=== PATIENT | male | born 1985 | race Caucasian/White ===

== ENCOUNTER 2018-10-16 03:56 | Inpatient (IN) | payer MEDICAID ==
[~2018-10-16] VITALS: Ht 175.3 cm; Wt 72.6 kg
[2018-10-16 06:15] LABS: BASOPHILS % (AUTO) 0.9 % (0.0-2.0); EOSINOPHILS % (AUTO) 3.4 % (1.0-6.0); HEMATOCRIT 43.9 % (41-53); HEMOGLOBIN 14.2 g/dL (13.5-17.5); LYMPHOCYTES # (AUTO) 3.1 K/uL (1.0-4.8); LYMPHOCYTES % (AUTO) 33.8 % (22.0-44.0); MEAN CORPUSCULAR HEMOGLOBIN 28.2 pg (26.0-34.0); MEAN CORPUSCULAR HGB CONC 32.3 G/dL (31.0-37.0); MEAN CORPUSCULAR VOLUME 87 fL (80-100); MONOCYTES # (AUTO) 0.7 K/uL (0.1-1.0); MONOCYTES % (AUTO) 7.7 % (2.0-9.0); NEUTROPHILS % (AUTO) 54.2 % (40.0-70.0); PLATELET COUNT (AUTO) 213 K/uL (150-450); RED BLOOD CELL COUNT(AUTO) 5.02 MIL/uL (4.50-5.90); RED CELL DISTRIBUTION WIDTH 15.6 % (11.5-14.5)
[2018-10-16 06:23] LABS: ANION GAP 8 mmol/L (8-16); CALCIUM, TOTAL 9.6 mg/dL (8.8-10.5); CARBON DIOXIDE 27 mmol/L (22-29); CHLORIDE 104 mmol/L (98-107); CREATININE 1.04 mg/dL (0.60-1.30); GLOMERULAR FILTR. RATE CALC > 60 mL/min (>60); GLUCOSE,RANDOM 80 mg/dL (70-110); POTASSIUM 3.9 mmol/L (3.5-5.1); SODIUM SERUM 139 mmol/L (136-145); UREA NITROGEN, BLOOD 15 mg/dL (7-18)
[2018-10-16 06:29] LABS: ALANINE AMINOTRANSFERASE 41 U/L (12-78); ALBUMIN 4.1 g/dL (3.4-5.0); ALKALINE PHOSPHATASE 73 U/L (46-116); ASPARTATE AMINOTRANSFERASE 52 U/L (15-37)
[2018-10-16 06:52] LABS: AMPHET/METH SCREEN,URINE POSITIVE (NEGATIVE); BARBITURATE SCREEN, URINE NEGATIVE (NEGATIVE); BENZODIAZEPINES SCREEN,URINE NEGATIVE (NEGATIVE); CANNABINOID SCREEN,URINE POSITIVE (NEGATIVE); COCAINE SCREEN,URINE NEGATIVE (NEGATIVE); METHADONE SCREEN, URINE NEGATIVE (NEGATIVE); OPIATE SCREEN,URINE NEGATIVE (NEGATIVE)
[2018-10-16 06:56] LABS: PHENCYCLIDINE SCREEN,URINE NEGATIVE (NEGATIVE)
[2018-10-16] MEDS ORDERED: DiphenhydrAMINE HCL 50 MG/ML VIAL ONE (09:03)
[2018-10-16] MEDS ORDERED: LORazepam 2 MG/ML VIAL ONE (09:03)
[2018-10-16] MEDS ORDERED: HALOPERIDOL LACTATE 5 MG/ML VIAL ONE (09:03)
[2018-10-16] MEDS ORDERED: LORazepam 2 MG/ML VIAL IM ONE (09:15)
[2018-10-16] MEDS ORDERED: HALOPERIDOL LACTATE 5 MG/ML VIAL IM ONE (09:15)
[2018-10-16] MEDS ORDERED: DiphenhydrAMINE HCL 50 MG/ML VIAL IM ONE (09:15)
[2018-10-16] MEDS ORDERED: ZOLPIDEM TARTRATE 10 MG TABLET PO PRN (11:00)
[2018-10-16] MEDS ORDERED: HALOPERIDOL 5 MG TABLET PO PRN (11:00)
[2018-10-16] MEDS ORDERED: LORazepam 2 MG TABLET PO PRN (11:00)
[2018-10-16] MEDS: QUEtiapine FUMARATE 100 MG TABLET PO SCH (21:12)
[2018-10-17 00:28] VITALS: BP 102/66
[2018-10-17] MEDS ORDERED: GuaiFENesin/D-METHORPHAN [SUGAR-FREE] 200-20MG/10 ML SYRUP UDCUP PO PRN (07:00)
[2018-10-17] MEDS ORDERED: PETROLATUM,WHITE 28 GM JELLY TP PRN (07:00)
[2018-10-17] MEDS ORDERED: ALBUTEROL SULFATE HFA 90 MCG/PUFF 8 GM INHALER IH PRN (07:00)
[2018-10-17] MEDS ORDERED: LOPERAMIDE HCL 2 MG CAPSULE PO PRN (07:00)
[2018-10-17] MEDS ORDERED: NICOTINE 14 MG/24 HOUR PATCH TD PRN (07:00)
[2018-10-17] MEDS ORDERED: ONDANSETRON HCL 4 MG TABLET PO PRN (07:00)
[2018-10-17] MEDS ORDERED: ACETAMINOPHEN 325 MG TABLET PO PRN (07:00)
[2018-10-17] MEDS ORDERED: DOCUSATE SODIUM 100 MG CAPSULE PO PRN (07:00)
[2018-10-17] MEDS ORDERED: CloNIDine HCL 0.1 MG TABLET PO PRN (07:00)
[2018-10-17] MEDS ORDERED: MAG HYDROX/AL HYDROX/SIMETH ES 30 ML SUSPENSION UDCUP PO PRN (07:00)
[2018-10-17 08:06] VITALS: BP 102/53
[2018-10-17 17:05] VITALS: BP 118/70
[2018-10-17] MEDS: QUEtiapine FUMARATE 100 MG TABLET PO SCH (20:45)
[2018-10-18 05:31] VITALS: BP 105/67
[2018-10-18 07:32] LABS: EOSINOPHILS % (AUTO) 4.8 % (1.0-6.0); HEMATOCRIT 42.9 % (41-53); HEMOGLOBIN 13.9 g/dL (13.5-17.5); LYMPHOCYTES # (AUTO) 2.3 K/uL (1.0-4.8); LYMPHOCYTES % (AUTO) 35.9 % (22.0-44.0); MEAN CORPUSCULAR HEMOGLOBIN 28.3 pg (26.0-34.0); MEAN CORPUSCULAR HGB CONC 32.3 G/dL (31.0-37.0); MEAN CORPUSCULAR VOLUME 88 fL (80-100); MONOCYTES # (AUTO) 0.6 K/uL (0.1-1.0); MONOCYTES % (AUTO) 8.9 % (2.0-9.0); NEUTROPHILS # (AUTO) 3.1 K/uL (1.8-7.7); NEUTROPHILS % (AUTO) 49.4 % (40.0-70.0); PLATELET COUNT (AUTO) 214 K/uL (150-450); RED BLOOD CELL COUNT(AUTO) 4.91 MIL/uL (4.50-5.90); RED CELL DISTRIBUTION WIDTH 15.7 % (11.5-14.5)
[2018-10-18 08:08] VITALS: BP 129/75
[2018-10-18 08:21] LABS: ANION GAP 8 mmol/L (8-16); CARBON DIOXIDE 27 mmol/L (22-29); CHLORIDE 104 mmol/L (98-107); CREATININE 1.03 mg/dL (0.60-1.30); GLUCOSE,RANDOM 93 mg/dL (70-110); POTASSIUM 4.2 mmol/L (3.5-5.1); SODIUM SERUM 139 mmol/L (136-145); UREA NITROGEN, BLOOD 19 mg/dL (7-18)
[2018-10-18 08:22] LABS: ALANINE AMINOTRANSFERASE 30 U/L (12-78); ALBUMIN 3.2 g/dL (3.4-5.0); ALKALINE PHOSPHATASE 78 U/L (46-116); ASPARTATE AMINOTRANSFERASE 28 U/L (15-37); BILIRUBIN,TOTAL 0.2 mg/dL (0.1-1.0); CALCIUM, TOTAL 9.5 mg/dL (8.8-10.5); CHOL/HDL RATIO 1.6 (4.2-7.3); CHOLESTEROL 128 mg/dL (131-200); GLOMERULAR FILTR. RATE CALC > 60 mL/min (>60); HDL CHOLESTEROL 82 mg/dL (40-60); LDL CHOL (CALC.) 34 mg/dL (0-130); THYROID STIMULATING HORMONE 0.38 uIU/mL (0.36-3.74); TRIGLYCERIDES 58 mg/dL (15-150)
[2018-10-18] MEDS ORDERED: HALOPERIDOL LACTATE 5 MG/ML VIAL ONE (15:43)
[2018-10-18] MEDS ORDERED: LORazepam 2 MG/ML VIAL ONE (15:43)
[2018-10-18] MEDS ORDERED: DiphenhydrAMINE HCL 50 MG/ML VIAL ONE (15:43)
[2018-10-18 16:00] VITALS: BP 116/79
[2018-10-18] MEDS ORDERED: HALOPERIDOL LACTATE 5 MG/ML VIAL IM ONE (16:00)
[2018-10-18] MEDS ORDERED: LORazepam 2 MG/ML VIAL IM ONE (16:00)
[2018-10-18] MEDS ORDERED: DiphenhydrAMINE HCL 50 MG/ML VIAL IM ONE (16:00)
[2018-10-18] MEDS: QUEtiapine FUMARATE 100 MG TABLET PO SCH (21:00)
[2018-10-19 02:46] VITALS: BP 120/62
[2018-10-19 08:14] VITALS: BP 130/76
[2018-10-19 16:14] VITALS: BP 121/76
[2018-10-19] MEDS: QUEtiapine FUMARATE 100 MG TABLET PO SCH (20:21)
[2018-10-20 00:29] VITALS: BP 118/65
[2018-10-20 08:17] VITALS: BP 116/66
== END 2018-10-20 13:38 | disposition home or self-care (01) | DRG 751 ==
LOC: EMS 03:59 → B3A 22:30
DX: F29 Unspecified psychosis not due to a substance or known physiological condition (principal); R45.851 Suicidal ideations; F15.10 Other stimulant abuse, uncomplicated; F10.10 Alcohol abuse, uncomplicated; F12.90 Cannabis use, unspecified, uncomplicated; F17.210 Nicotine dependence, cigarettes, uncomplicated; R74.0 Nonspecific elevation of levels of transaminase and lactic acid dehydrogenase [LDH]; F19.10 Other psychoactive substance abuse, uncomplicated; Z59.0 Homelessness; Z79.899 Other long term (current) drug therapy; Z91.5 Personal history of self-harm; Z71.51 Drug abuse counseling and surveillance of drug abuser; Z71.41 Alcohol abuse counseling and surveillance of alcoholic
CPT/HCPCS: 83036; 84443; G0480; J1200; J1630; J2060

== ENCOUNTER 2018-12-06 19:30 | Inpatient (IN) | payer MEDICAID ==
[~2018-12-06] VITALS: Ht 175.3 cm; Wt 76.4 kg
[2018-12-06] MEDS ORDERED: QUET100T PO (19:42)
[2018-12-06] MEDS ORDERED: PERTUSS(ACELL),DIPH,TET VAC/PF 0.5 ML VIAL IM ONE (23:00)
[2018-12-06] MEDS ORDERED: ACETAMINOPHEN 500 MG TABLET PO ONE (23:00)
[2018-12-07] MEDS ORDERED: LORazepam 2 MG TABLET PO PRN (02:00)
[2018-12-07] MEDS ORDERED: ZOLPIDEM TARTRATE 10 MG TABLET PO PRN (02:00)
[2018-12-07] MEDS ORDERED: QUEtiapine FUMARATE 100 MG TABLET PO PRN (02:00)
[2018-12-07 02:56] LABS: EOSINOPHILS % (AUTO) 2.8 % (1.0-6.0); HEMATOCRIT 39.8 % (41-53); HEMOGLOBIN 12.7 g/dL (13.5-17.5); LYMPHOCYTES # (AUTO) 3.1 K/uL (1.0-4.8); MEAN CORPUSCULAR HEMOGLOBIN 28.1 pg (26.0-34.0); MEAN CORPUSCULAR VOLUME 88 fL (80-100); MONOCYTES # (AUTO) 0.8 K/uL (0.1-1.0); MONOCYTES % (AUTO) 10.5 % (2.0-9.0); NEUTROPHILS # (AUTO) 3.5 K/uL (1.8-7.7); NEUTROPHILS % (AUTO) 45.7 % (40.0-70.0); PLATELET COUNT (AUTO) 177 K/uL (150-450); RED BLOOD CELL COUNT(AUTO) 4.53 MIL/uL (4.50-5.90); RED CELL DISTRIBUTION WIDTH 15.7 % (11.5-14.5)
[2018-12-07 03:02] LABS: ANION GAP 6 mmol/L (8-16); CALCIUM, TOTAL 9.4 mg/dL (8.8-10.5); CARBON DIOXIDE 29 mmol/L (22-29); CHLORIDE 104 mmol/L (98-107); CREATININE 1.04 mg/dL (0.60-1.30); GLOMERULAR FILTR. RATE CALC > 60 mL/min (>60); GLUCOSE,RANDOM 101 mg/dL (70-110); POTASSIUM 3.9 mmol/L (3.5-5.1); SODIUM SERUM 139 mmol/L (136-145); UREA NITROGEN, BLOOD 16 mg/dL (7-18)
[2018-12-07 03:08] LABS: ALANINE AMINOTRANSFERASE 21 U/L (12-78); ALBUMIN 3.7 g/dL (3.4-5.0); ALKALINE PHOSPHATASE 63 U/L (46-116); ASPARTATE AMINOTRANSFERASE 25 U/L (15-37); BILIRUBIN,TOTAL 0.6 mg/dL (0.1-1.0); TOTAL PROTEIN, SERUM 6.7 g/dL (6.4-8.2)
[2018-12-07 03:10] LABS: APPEARANCE,URINE CLEAR (CLEAR); BILIRUBIN,URINE NEGATIVE (NEGATIVE); GLUCOSE, URINE (UA) NEGATIVE (NEGATIVE); KETONES,URINE NEGATIVE (NEGATIVE); LEUKOCYTE ESTERASE ,URINE NEGATIVE (NEGATIVE); NITRATE,URINE NEGATIVE (NEGATIVE); OCCULT BLOOD,URINE NEGATIVE (NEGATIVE); PROTEIN,URINE NEGATIVE (NEGATIVE); UROBILINOGEN,URINE 0.2 mg/dL (<=1.0)
[2018-12-07 03:13] LABS: AMPHET/METH SCREEN,URINE NEGATIVE (NEGATIVE); BARBITURATE SCREEN, URINE NEGATIVE (NEGATIVE); BENZODIAZEPINES SCREEN,URINE NEGATIVE (NEGATIVE); CANNABINOID SCREEN,URINE POSITIVE (NEGATIVE); COCAINE SCREEN,URINE NEGATIVE (NEGATIVE); METHADONE SCREEN, URINE NEGATIVE (NEGATIVE); OPIATE SCREEN,URINE NEGATIVE (NEGATIVE); PHENCYCLIDINE SCREEN,URINE NEGATIVE (NEGATIVE)
[2018-12-07 08:43] VITALS: BP 112/64
[2018-12-07] MEDS ORDERED: HydrOXYzine PAMOATE 50 MG CAPSULE PO PRN (13:45)
[2018-12-07] MEDS ORDERED: ACETAMINOPHEN 325 MG TABLET PO PRN (13:45)
[2018-12-07] MEDS ORDERED: PROMETHAZINE HCL 25 MG TABLET PO PRN (13:45)
[2018-12-07] MEDS ORDERED: GuaiFENesin/D-METHORPHAN [SUGAR-FREE] 200-20MG/10 ML SYRUP UDCUP PO PRN (13:45)
[2018-12-07] MEDS ORDERED: MAGNESIUM HYDROXIDE SUSPENSION 30 ML UDCUP PO PRN (13:45)
[2018-12-07] MEDS ORDERED: TUBERCULIN, PURIFIED PROTEIN DERIVATIVE 5 TU/0.1 ML SYRINGE ID ONE (13:45)
[2018-12-07] MEDS ORDERED: OLANZapine 5 MG RAPDIS TABLET PO PRN (13:45)
[2018-12-07] MEDS ORDERED: LOPERAMIDE HCL 2 MG CAPSULE PO PRN (13:45)
[2018-12-07] MEDS ORDERED: MAG HYDROX/AL HYDROX/SIMETH ES 30 ML SUSPENSION UDCUP PO PRN (13:45)
[2018-12-07 16:00] VITALS: BP 124/65
[2018-12-07] MEDS: THIAMINE HCL 100 MG TABLET PO SCH (17:00)
[2018-12-07] MEDS ORDERED: OLANZapine 5 MG RAPDIS TABLET PO SCH (21:00)
[2018-12-08 06:08] VITALS: BP 118/68
[2018-12-08] MEDS ORDERED: FLUoxetine HCL 20 MG CAPSULE PO SCH (09:00)
[2018-12-08] MEDS: NALTREXONE HCL 50 MG TABLET PO SCH (09:37)
[2018-12-08] MEDS: MULTIVITAMINS WITH MINERALS, THERAPEUTIC TABLET PO SCH (09:37)
[2018-12-08] MEDS: THIAMINE HCL 100 MG TABLET PO SCH ×2 (09:37→17:07)
[2018-12-08] MEDS: FOLIC ACID 1 MG TABLET PO SCH (09:37)
[2018-12-08] MEDS ORDERED: OLAN5TAB30 PO (19:03)
[2018-12-08] MEDS ORDERED: NALT50TA PO (19:03)
[2018-12-08] MEDS ORDERED: BUPR-47 PO (19:03)
[2018-12-08] MEDS ORDERED: OLANZapine 5 MG RAPDIS TABLET PO SCH (21:00)
[2018-12-09 08:09] VITALS: BP 99/61
[2018-12-09] MEDS: MULTIVITAMINS WITH MINERALS, THERAPEUTIC TABLET PO SCH (08:55)
[2018-12-09] MEDS: NALTREXONE HCL 50 MG TABLET PO SCH (08:59)
[2018-12-09] MEDS: THIAMINE HCL 100 MG TABLET PO SCH (08:59)
[2018-12-09] MEDS: FOLIC ACID 1 MG TABLET PO SCH (08:59)
[2018-12-09] MEDS ORDERED: BuPROPion HCL XL 150 MG ER TABLET PO SCH (09:00)
[2018-12-09] MEDS ORDERED: BUPR-93 PO (11:26)
[2018-12-09] MEDS ORDERED: NALT50TA6 PO (11:26)
[2018-12-09] MEDS ORDERED: OLAN20TA35 PO (11:26)
== END 2018-12-09 14:37 | disposition home or self-care (01) | DRG 751 ==
LOC: EMS 19:32 → B3A 12-07 03:17
PROVIDERS: ADMIT Psychiatry & Neurology Psychiatry; ATTEND Psychiatry & Neurology Psychiatry
PROC: 2W3RX1Z Immobilization of Left Lower Leg using Splint (ICD-10-PCS; principal; 2018-12-07)
DX: F33.2 Major depressive disorder, recurrent severe without psychotic features (principal); R45.851 Suicidal ideations; F25.9 Schizoaffective disorder, unspecified; D64.9 Anemia, unspecified; F12.10 Cannabis abuse, uncomplicated; S30.0XXA Contusion of lower back and pelvis, initial encounter; F17.210 Nicotine dependence, cigarettes, uncomplicated; S62.305A Unspecified fracture of fourth metacarpal bone, left hand, initial encounter for closed fracture; X58.XXXA Exposure to other specified factors, initial encounter; Y93.89 Activity, other specified; Z91.19 Patient's noncompliance with other medical treatment and regimen; Y92.89 Other specified places as the place of occurrence of the external cause; Y99.8 Other external cause status; Z63.9 Problem related to primary support group, unspecified; Z65.3 Problems related to other legal circumstances
CPT/HCPCS: 29280; 90471; 90715; G0480

== ENCOUNTER 2019-01-10 00:27 | Emergency (ER) | payer MEDICAID ==
[~2019-01-10] VITALS: Ht 175.3 cm; Wt 77.3 kg
[~2019-01-10 00:27] MED LIST: BUPR-47 PO; BUPR-93 PO; NALT50TA PO; NALT50TA6 PO; OLAN20TA35 PO; OLAN5TAB30 PO
[2019-01-10 04:25] VITALS: BP 117/70
== END 2019-01-10 04:35 | disposition left against medical advice (07) ==
LOC: EMS 00:30
DX: S43.004A Unspecified dislocation of right shoulder joint, initial encounter (principal); F12.90 Cannabis use, unspecified, uncomplicated; F17.210 Nicotine dependence, cigarettes, uncomplicated; Z88.6 Allergy status to analgesic agent; X50.3XXA Overexertion from repetitive movements, initial encounter; Y93.41 Activity, dancing; Y92.89 Other specified places as the place of occurrence of the external cause; Y99.8 Other external cause status
CPT/HCPCS: 99406

== ENCOUNTER 2019-02-03 20:15 | Inpatient (IN) | payer MEDICAID ==
[~2019-02-03] VITALS: Ht 175.3 cm; Wt 75.3 kg
[~2019-02-03 20:15] MED LIST changes: -BUPR-47 PO; -NALT50TA PO; -OLAN5TAB30 PO
[2019-02-04] MEDS ORDERED: ZOLPIDEM TARTRATE 10 MG TABLET PO PRN
[2019-02-04] MEDS ORDERED: LORazepam 2 MG TABLET PO PRN
[2019-02-04] MEDS ORDERED: HALOPERIDOL 5 MG TABLET PO PRN
[2019-02-04 01:15] VITALS: BP 121/82
[2019-02-04] MEDS ORDERED: DOCUSATE SODIUM 100 MG CAPSULE PO PRN (01:45)
[2019-02-04] MEDS ORDERED: MAGNESIUM HYDROXIDE SUSPENSION 30 ML UDCUP PO PRN (01:45)
[2019-02-04] MEDS ORDERED: CloNIDine HCL 0.1 MG TABLET PO PRN (01:45)
[2019-02-04] MEDS ORDERED: ACETAMINOPHEN 325 MG TABLET PO PRN (01:45)
[2019-02-04] MEDS ORDERED: PETROLATUM,WHITE 28 GM JELLY TP PRN (01:45)
[2019-02-04] MEDS ORDERED: ALBUTEROL SULFATE HFA 90 MCG/PUFF 8 GM INHALER IH PRN (01:45)
[2019-02-04] MEDS ORDERED: NICOTINE 14 MG/24 HOUR PATCH TD PRN (01:45)
[2019-02-04] MEDS ORDERED: ONDANSETRON HCL 4 MG TABLET PO PRN (01:45)
[2019-02-04] MEDS ORDERED: IBUPROFEN 400 MG TABLET PO PRN (01:45)
[2019-02-04] MEDS ORDERED: LOPERAMIDE HCL 2 MG CAPSULE PO PRN (01:45)
[2019-02-04] MEDS ORDERED: GuaiFENesin/D-METHORPHAN [SUGAR-FREE] 200-20MG/10 ML SYRUP UDCUP PO PRN (01:45)
[2019-02-04] MEDS ORDERED: MAG HYDROX/AL HYDROX/SIMETH ES 30 ML SUSPENSION UDCUP PO PRN (01:45)
[2019-02-04] MEDS ORDERED: INFLUENZA VIRUS VACCINE QVS 2019-20 (3YR+)/PF 60 MCG/0.5 ML SYRINGE IM ONE (02:00)
[2019-02-04 08:14] VITALS: BP 118/71
[2019-02-04 16:40] VITALS: BP 116/74
[2019-02-04] MEDS: QUEtiapine FUMARATE 25 MG TABLET PO SCH (20:18)
[2019-02-05 08:30] VITALS: BP 126/73
[2019-02-05 16:14] VITALS: BP 101/62
[2019-02-05] MEDS: QUEtiapine FUMARATE 25 MG TABLET PO SCH (20:26)
[2019-02-06 05:17] VITALS: BP 110/68
[2019-02-06 08:52] VITALS: BP 110/63
[2019-02-06 16:26] VITALS: BP 107/67
[2019-02-06] MEDS: QUEtiapine FUMARATE 25 MG TABLET PO SCH (20:20)
[2019-02-07 00:28] VITALS: BP 106/68
[2019-02-07 16:26] VITALS: BP 117/72
[2019-02-07] MEDS: QUEtiapine FUMARATE 25 MG TABLET PO SCH (20:30)
[2019-02-08 01:06] VITALS: BP 110/70
[2019-02-08 08:25] VITALS: BP 139/78
[2019-02-08] MEDS ORDERED: QUET25TA PO (10:08)
== END 2019-02-08 11:08 | disposition home or self-care (01) | DRG 751 ==
LOC: EMS 20:17 → B2S 02-04 00:01
PROVIDERS: ADMIT Psychiatry & Neurology Psychiatry; ATTEND Psychiatry & Neurology Psychiatry
DX: F32.3 Major depressive disorder, single episode, severe with psychotic features (principal); R45.851 Suicidal ideations; Z91.14 Patient's other noncompliance with medication regimen; F17.210 Nicotine dependence, cigarettes, uncomplicated; F12.90 Cannabis use, unspecified, uncomplicated; F10.10 Alcohol abuse, uncomplicated; F15.90 Other stimulant use, unspecified, uncomplicated; Z88.1 Allergy status to other antibiotic agents; Z59.0 Homelessness; Z91.5 Personal history of self-harm
CPT/HCPCS: 87081

== ENCOUNTER 2019-02-22 16:13 | Inpatient (IN) | payer MEDICAID ==
[~2019-02-22] VITALS: Ht 175.3 cm; Wt 74.8 kg
[~2019-02-22 16:13] MED LIST changes: -BUPR-93 PO; -NALT50TA6 PO; -OLAN20TA35 PO; +QUET25TA PO
[2019-02-22] MEDS ORDERED: HALOPERIDOL 5 MG TABLET PO PRN (21:15)
[2019-02-22] MEDS ORDERED: ZOLPIDEM TARTRATE 10 MG TABLET PO PRN (21:15)
[2019-02-22 21:17] LABS: AMPHET/METH SCREEN,URINE NEGATIVE (NEGATIVE); BARBITURATE SCREEN, URINE NEGATIVE (NEGATIVE); BENZODIAZEPINES SCREEN,URINE NEGATIVE (NEGATIVE); CANNABINOID SCREEN,URINE POSITIVE (NEGATIVE); COCAINE SCREEN,URINE NEGATIVE (NEGATIVE); METHADONE SCREEN, URINE NEGATIVE (NEGATIVE); OPIATE SCREEN,URINE NEGATIVE (NEGATIVE)
[2019-02-22 21:27] LABS: PHENCYCLIDINE SCREEN,URINE NEGATIVE (NEGATIVE)
[2019-02-22 21:28] LABS: APPEARANCE,URINE CLOUDY (CLEAR); BILIRUBIN,URINE NEGATIVE (NEGATIVE); GLUCOSE, URINE (UA) NEGATIVE (NEGATIVE); KETONES,URINE NEGATIVE (NEGATIVE); LEUKOCYTE ESTERASE ,URINE NEGATIVE (NEGATIVE); NITRATE,URINE NEGATIVE (NEGATIVE); OCCULT BLOOD,URINE NEGATIVE (NEGATIVE); PROTEIN,URINE NEGATIVE (NEGATIVE); UROBILINOGEN,URINE 0.2 mg/dL (<=1.0)
[2019-02-23 03:26] VITALS: BP 112/69
[2019-02-23] MEDS ORDERED: INFLUENZA VIRUS VACCINE QVS 2019-20 (3YR+)/PF 60 MCG/0.5 ML SYRINGE IM ONE (04:15)
[2019-02-23 08:17] VITALS: BP 126/66
[2019-02-23 19:08] VITALS: BP 130/68
[2019-02-23] MEDS: QUEtiapine FUMARATE 100 MG TABLET PO SCH (20:01)
[2019-02-24 08:43] VITALS: BP 111/66
[2019-02-24] MEDS ORDERED: LOPERAMIDE HCL 2 MG CAPSULE PO PRN (13:15)
[2019-02-24] MEDS ORDERED: MAG HYDROX/AL HYDROX/SIMETH ES 30 ML SUSPENSION UDCUP PO PRN (13:15)
[2019-02-24] MEDS ORDERED: ACETAMINOPHEN 325 MG TABLET PO PRN (13:15)
[2019-02-24] MEDS ORDERED: CloNIDine HCL 0.1 MG TABLET PO PRN (13:15)
[2019-02-24] MEDS ORDERED: GuaiFENesin/D-METHORPHAN [SUGAR-FREE] 200-20MG/10 ML SYRUP UDCUP PO PRN (13:15)
[2019-02-24] MEDS ORDERED: ONDANSETRON HCL 4 MG TABLET PO PRN (13:15)
[2019-02-24] MEDS ORDERED: ALBUTEROL SULFATE HFA 90 MCG/PUFF 8 GM INHALER IH PRN (13:15)
[2019-02-24] MEDS ORDERED: DOCUSATE SODIUM 100 MG CAPSULE PO PRN (13:15)
[2019-02-24] MEDS ORDERED: MAGNESIUM HYDROXIDE SUSPENSION 30 ML UDCUP PO PRN (13:15)
[2019-02-24] MEDS ORDERED: PETROLATUM,WHITE 28 GM JELLY TP PRN (13:15)
[2019-02-24] MEDS ORDERED: NICOTINE 14 MG/24 HOUR PATCH TD PRN (13:15)
[2019-02-24 17:23] VITALS: BP 140/67
[2019-02-24] MEDS: QUEtiapine FUMARATE 100 MG TABLET PO SCH (20:17)
[2019-02-25 08:21] VITALS: BP 111/61
[2019-02-25 16:24] VITALS: BP 122/69
[2019-02-25] MEDS: QUEtiapine FUMARATE 100 MG TABLET PO SCH (20:16)
[2019-02-26 08:18] VITALS: BP 109/74
[2019-02-26 16:11] VITALS: BP 128/84
[2019-02-26] MEDS: QUEtiapine FUMARATE 100 MG TABLET PO SCH (20:28)
[2019-02-27 08:41] VITALS: BP 114/67
[2019-02-27 16:27] VITALS: BP 138/83
[2019-02-27] MEDS: QUEtiapine FUMARATE 100 MG TABLET PO SCH (20:31)
[2019-02-28 06:25] VITALS: BP 119/81
[2019-02-28 08:57] VITALS: BP 134/78
[2019-02-28 16:46] VITALS: BP 140/89
[2019-02-28] MEDS: LORazepam 2 MG TABLET PO PRN (17:02)
[2019-02-28] MEDS: QUEtiapine FUMARATE 200 MG TABLET PO SCH (20:33)
[2019-03-01 06:54] VITALS: BP 106/70
[2019-03-01 08:40] VITALS: BP 119/86
[2019-03-01] MEDS: LORazepam 2 MG TABLET PO PRN (09:21)
[2019-03-01 16:26] VITALS: BP 147/81
[2019-03-01] MEDS ORDERED: DiphenhydrAMINE HCL 50 MG/ML VIAL IM ONE (18:30)
[2019-03-01] MEDS ORDERED: LORazepam 2 MG/ML VIAL IM ONE (18:30)
[2019-03-01] MEDS ORDERED: HALOPERIDOL LACTATE 5 MG/ML VIAL IM ONE (18:30)
[2019-03-01] MEDS: QUEtiapine FUMARATE 200 MG TABLET PO SCH (21:00)
[2019-03-02 09:47] VITALS: BP 111/75
[2019-03-02 17:05] VITALS: BP 123/74
[2019-03-02] MEDS: QUEtiapine FUMARATE 200 MG TABLET PO SCH (20:34)
[2019-03-03 08:51] VITALS: BP 133/79
[2019-03-03] MEDS ORDERED: QUET200T PO (12:08)
== END 2019-03-03 15:00 | disposition home or self-care (01) | DRG 750 ==
LOC: EMS 16:15 → B2S 23:30 → UNDOADMIN 23:30 → B2S 02-23 03:17 → 3EC 03-01 17:10
PROVIDERS: ADMIT Psychiatry & Neurology Psychiatry; ATTEND Psychiatry & Neurology Psychiatry
DX: F25.9 Schizoaffective disorder, unspecified (principal); R45.851 Suicidal ideations; Z59.0 Homelessness; F10.10 Alcohol abuse, uncomplicated; F12.90 Cannabis use, unspecified, uncomplicated; F15.90 Other stimulant use, unspecified, uncomplicated; F17.210 Nicotine dependence, cigarettes, uncomplicated; Z79.899 Other long term (current) drug therapy; Z81.8 Family history of other mental and behavioral disorders; Z88.1 Allergy status to other antibiotic agents; Z91.14 Patient's other noncompliance with medication regimen; Z65.3 Problems related to other legal circumstances
CPT/HCPCS: 87081; J1200; J1630; J2060

== ENCOUNTER 2019-03-06 10:07 | Emergency (ER) | payer MEDICAID ==
[~2019-03-06] VITALS: Ht 175.3 cm; Wt 72.7 kg
[~2019-03-06 10:07] MED LIST changes: +QUET200T PO; -QUET25TA PO
[2019-03-06 12:35] LABS: AMPHET/METH SCREEN,URINE NEGATIVE (NEGATIVE); BARBITURATE SCREEN, URINE NEGATIVE (NEGATIVE); BENZODIAZEPINES SCREEN,URINE NEGATIVE (NEGATIVE); CANNABINOID SCREEN,URINE POSITIVE (NEGATIVE); COCAINE SCREEN,URINE NEGATIVE (NEGATIVE); METHADONE SCREEN, URINE NEGATIVE (NEGATIVE); OPIATE SCREEN,URINE NEGATIVE (NEGATIVE); PHENCYCLIDINE SCREEN,URINE NEGATIVE (NEGATIVE)
[2019-03-06 14:20] VITALS: BP 121/61
== END 2019-03-06 14:40 | disposition home or self-care (01) ==
LOC: EMS 10:10
DX: R45.851 Suicidal ideations (principal); F32.9 Major depressive disorder, single episode, unspecified; F17.210 Nicotine dependence, cigarettes, uncomplicated; F12.90 Cannabis use, unspecified, uncomplicated; F15.90 Other stimulant use, unspecified, uncomplicated; Z98.890 Other specified postprocedural states; Z88.6 Allergy status to analgesic agent
CPT/HCPCS: 99406

== ENCOUNTER 2019-09-21 09:56 | Emergency (ER) | payer MEDICAID ==
[~2019-09-21] VITALS: Ht 175.3 cm; Wt 77.3 kg
[2019-09-21 12:40] VITALS: BP 117/70
== END 2019-09-21 12:30 | disposition home or self-care (01) ==
LOC: EMS 10:00
DX: M24.411 Recurrent dislocation, right shoulder (principal); F17.210 Nicotine dependence, cigarettes, uncomplicated; F12.90 Cannabis use, unspecified, uncomplicated; F15.90 Other stimulant use, unspecified, uncomplicated; F32.9 Major depressive disorder, single episode, unspecified; Z88.6 Allergy status to analgesic agent

== ENCOUNTER 2022-09-13 05:50 | Inpatient (IN) | payer MEDICAID ==
[~2022-09-13] VITALS: Ht 175.3 cm; Wt 81.6 kg
[2022-09-13] MEDS ORDERED: ZOLPIDEM TARTRATE 10 MG TABLET PO PRN (08:45)
[2022-09-13] MEDS ORDERED: QUEtiapine FUMARATE 100 MG TABLET PO PRN (08:45)
[2022-09-13] MEDS ORDERED: LORazepam 2 MG TABLET PO PRN (08:45)
[2022-09-13 10:19] LABS: COVID AG,FIA SOURCE NASAL SWAB
[2022-09-13 14:13] VITALS: BP 130/77
[2022-09-13 16:49] VITALS: BP 120/66
[2022-09-14 04:32] VITALS: BP 122/68
[2022-09-14] MEDS ORDERED: ACETAMINOPHEN 325 MG TABLET PO PRN (09:00)
[2022-09-14] MEDS ORDERED: PETROLATUM,WHITE 28 GM JELLY TP PRN (09:00)
[2022-09-14] MEDS ORDERED: MAGNESIUM HYDROXIDE SUSPENSION 30 ML UDCUP PO PRN (09:00)
[2022-09-14] MEDS ORDERED: CloNIDine HCL 0.1 MG TABLET PO PRN (09:00)
[2022-09-14] MEDS ORDERED: NICOTINE 14 MG/24 HOUR PATCH TD PRN (09:00)
[2022-09-14] MEDS ORDERED: LOPERAMIDE HCL 2 MG CAPSULE PO PRN (09:00)
[2022-09-14] MEDS ORDERED: MAG HYDROX/AL HYDROX/SIMETH ES 30 ML SUSPENSION UDCUP PO PRN (09:00)
[2022-09-14] MEDS ORDERED: GuaiFENesin/D-METHORPHAN [SUGAR-FREE] 200-20MG/10 ML SYRUP UDCUP PO PRN (09:00)
[2022-09-14] MEDS ORDERED: ALBUTEROL SULFATE HFA 90 MCG/PUFF 8 GM INHALER IH PRN (09:00)
[2022-09-14] MEDS ORDERED: ONDANSETRON HCL 4 MG TABLET PO PRN (09:00)
[2022-09-14] MEDS ORDERED: DOCUSATE SODIUM 100 MG CAPSULE PO PRN (09:00)
[2022-09-14 16:31] VITALS: BP 131/86
[2022-09-14] MEDS: QUEtiapine FUMARATE 100 MG TABLET PO SCH (20:12)
[2022-09-15 08:51] VITALS: BP 113/60
[2022-09-15] MEDS: QUEtiapine FUMARATE 100 MG TABLET PO SCH (20:32)
[2022-09-15 20:40] VITALS: BP 114/67
[2022-09-16 08:24] VITALS: BP 110/73
[2022-09-16 20:26] VITALS: BP 123/80
[2022-09-16] MEDS: QUEtiapine FUMARATE 100 MG TABLET PO SCH (22:15)
[2022-09-17 08:31] VITALS: BP 106/67
[2022-09-17] MEDS: QUEtiapine FUMARATE 100 MG TABLET PO SCH (20:35)
[2022-09-17 20:59] VITALS: BP 130/77
[2022-09-18] MEDS ORDERED: QUET100T34 PO (05:06)
== END 2022-09-18 08:10 | disposition home or self-care (01) | DRG 753 ==
LOC: EMS 05:51 → B2S 12:20
PROVIDERS: ADMIT Psychiatry & Neurology Psychiatry; ATTEND Psychiatry & Neurology Psychiatry
DX: F31.4 Bipolar disorder, current episode depressed, severe, without psychotic features (principal); R45.851 Suicidal ideations; F41.9 Anxiety disorder, unspecified; G47.00 Insomnia, unspecified; F19.10 Other psychoactive substance abuse, uncomplicated; F10.90 Alcohol use, unspecified, uncomplicated; F17.210 Nicotine dependence, cigarettes, uncomplicated; K59.00 Constipation, unspecified; Z59.00 Homelessness unspecified; Z79.899 Other long term (current) drug therapy; Z88.6 Allergy status to analgesic agent; Z91.51 Personal history of suicidal behavior
CPT/HCPCS: Z7610

== ENCOUNTER 2022-10-21 23:41 | Emergency (ER) | payer MEDICAID ==
[~2022-10-21] VITALS: Ht 175.3 cm; Wt 75.0 kg
[2022-10-22 02:44] VITALS: TEMP 98.1
[2022-10-22] MEDS ORDERED: QUEtiapine FUMARATE 100 MG TABLET PO ONE (02:45)
[2022-10-22 02:48] VITALS: BP 132/86; PULSE 81; RESP 17
[2022-10-22 03:00] LABS: COVID AG,FIA SOURCE NASAL SWAB
[2022-10-22 03:13] LABS: AMPHET/METH SCREEN,URINE POSITIVE (NEGATIVE); BARBITURATE SCREEN, URINE NEGATIVE (NEGATIVE); BENZODIAZEPINES SCREEN,URINE NEGATIVE (NEGATIVE); CANNABINOID SCREEN,URINE NEGATIVE (NEGATIVE); COCAINE SCREEN,URINE NEGATIVE (NEGATIVE); METHADONE SCREEN, URINE NEGATIVE (NEGATIVE); OPIATE SCREEN,URINE NEGATIVE (NEGATIVE); PHENCYCLIDINE SCREEN,URINE NEGATIVE (NEGATIVE)
== END 2022-10-22 06:05 | disposition home or self-care (01) ==
LOC: EMS 23:42
DX: F32.A Depression, unspecified (principal); F17.210 Nicotine dependence, cigarettes, uncomplicated; F12.90 Cannabis use, unspecified, uncomplicated; F15.90 Other stimulant use, unspecified, uncomplicated; Z88.8 Allergy status to other drugs, medicaments and biological substances; Z20.822 Contact with and (suspected) exposure to COVID-19
CPT/HCPCS: 80307; 99285

== ENCOUNTER 2022-11-02 00:50 | Emergency (ER) | payer MEDICAID ==
[~2022-11-02] VITALS: Ht 172.7 cm; Wt 75.0 kg
[2022-11-02 01:20] VITALS: TEMP 98.4
[2022-11-02] MEDS ORDERED: TraMADol HCL 50 MG TABLET PO ONE (01:30)
[2022-11-02 03:01] VITALS: BP 112/60; PULSE 90; RESP 16
== END 2022-11-02 06:09 | disposition home or self-care (01) ==
LOC: EMS 00:51
DX: S43.004A Unspecified dislocation of right shoulder joint, initial encounter (principal); F41.9 Anxiety disorder, unspecified; F31.9 Bipolar disorder, unspecified; F17.210 Nicotine dependence, cigarettes, uncomplicated; F12.90 Cannabis use, unspecified, uncomplicated; F15.90 Other stimulant use, unspecified, uncomplicated; Z88.8 Allergy status to other drugs, medicaments and biological substances; X58.XXXA Exposure to other specified factors, initial encounter; Y93.89 Activity, other specified; Y92.89 Other specified places as the place of occurrence of the external cause; Y99.8 Other external cause status
CPT/HCPCS: 99283

== ENCOUNTER 2022-11-02 20:52 | Emergency (ER) | payer MEDICAID ==
[~2022-11-02] VITALS: Ht 172.7 cm; Wt 79.5 kg
[2022-11-02 21:27] LABS: BASOPHILS % (AUTO) 0.9 % (0.0-2.0); EOSINOPHILS % (AUTO) 3.3 % (1.0-6.0); HEMATOCRIT 34.1 % (41-53); HEMOGLOBIN 10.9 g/dL (13.5-17.5); LYMPHOCYTES # (AUTO) 2.3 K/uL (1.0-4.8); MEAN CORPUSCULAR HGB CONC 31.9 G/dL (31.0-37.0); MEAN CORPUSCULAR VOLUME 85 fL (80-100); MONOCYTES # (AUTO) 0.5 K/uL (0.1-1.0); MONOCYTES % (AUTO) 8.5 % (2.0-9.0); NEUTROPHILS # (AUTO) 3.1 K/uL (1.8-7.7); NEUTROPHILS % (AUTO) 50.3 % (40.0-70.0); PLATELET COUNT (AUTO) 227 K/uL (150-450); RED BLOOD CELL COUNT(AUTO) 4.03 MIL/uL (4.50-5.90)
[2022-11-02 21:35] LABS: ANION GAP 8 mmol/L (8-16); CALCIUM, TOTAL 8.7 mg/dL (8.8-10.5); CARBON DIOXIDE 28 mmol/L (22-29); CHLORIDE 106 mmol/L (98-107); CREATININE 0.95 mg/dL (0.60-1.30); GLOMERULAR FILTR. RATE CALC > 60 mL/min (>60); GLUCOSE,RANDOM 129 mg/dL (70-110); POTASSIUM 3.5 mmol/L (3.5-5.1); SODIUM SERUM 142 mmol/L (136-145)
[2022-11-02 21:42] LABS: ALANINE AMINOTRANSFERASE 23 U/L (12-78); ALKALINE PHOSPHATASE 97 U/L (46-116); ASPARTATE AMINOTRANSFERASE 20 U/L (15-37); BILIRUBIN,TOTAL 0.2 mg/dL (0.1-1.0); TOTAL PROTEIN, SERUM 6.3 g/dL (6.4-8.2)
[2022-11-02 22:23] VITALS: TEMP 98.3
[2022-11-02 23:11] LABS: AMPHET/METH SCREEN,URINE NEGATIVE (NEGATIVE); BARBITURATE SCREEN, URINE NEGATIVE (NEGATIVE); BENZODIAZEPINES SCREEN,URINE NEGATIVE (NEGATIVE); CANNABINOID SCREEN,URINE NEGATIVE (NEGATIVE); COCAINE SCREEN,URINE NEGATIVE (NEGATIVE); METHADONE SCREEN, URINE NEGATIVE (NEGATIVE); OPIATE SCREEN,URINE NEGATIVE (NEGATIVE); PHENCYCLIDINE SCREEN,URINE NEGATIVE (NEGATIVE)
[2022-11-03] MEDS: OLANZapine 5 MG TABLET PO ONE ×2 (00:31→00:33)
[2022-11-03 01:38] VITALS: BP 130/72; PULSE 82; RESP 18
== END 2022-11-03 02:05 | disposition home or self-care (01) ==
LOC: EMS 20:54
DX: F32.A Depression, unspecified (principal); F12.90 Cannabis use, unspecified, uncomplicated; F15.90 Other stimulant use, unspecified, uncomplicated; F17.210 Nicotine dependence, cigarettes, uncomplicated; F41.9 Anxiety disorder, unspecified; Z88.6 Allergy status to analgesic agent
CPT/HCPCS: 99284; 80053; 85025; 36415; 80307; G0480

== ENCOUNTER 2023-12-31 14:12 | Inpatient (IN) | payer MEDICAID ==
[~2023-12-31] VITALS: Ht 175.3 cm; Wt 75.4 kg
[~2023-12-31 14:12] MED LIST changes: +DIVA-112 PO; +LITH300C3 PO; -QUET200T PO; +QUET300T2 PO
[2023-12-31] MEDS ORDERED: HALOPERIDOL 5 MG TABLET PO PRN (15:00)
[2023-12-31] MEDS ORDERED: ACETAMINOPHEN 325 MG TABLET PO PRN (15:00)
[2023-12-31] MEDS ORDERED: LOPERAMIDE HCL 2 MG CAPSULE PO PRN (15:00)
[2023-12-31] MEDS ORDERED: MAG HYDROX/ALUMINUM HYD/SIMETH ES 30 ML SUSPENSION UDCUP PO PRN (15:00)
[2023-12-31 16:35] VITALS: BP 142/64; PULSE 69; RESP 16; TEMP 98; O2SAT 98
[2023-12-31 21:00] VITALS: BP 136/66; PULSE 81; RESP 16; TEMP 98; O2SAT 99
[2023-12-31] MEDS: LORazepam 2 MG TABLET PO PRN (21:52)
[2023-12-31] MEDS: ZOLPIDEM TARTRATE 10 MG TABLET PO PRN (21:52)
[2024-01-01 08:21] VITALS: BP 123/67; PULSE 67; RESP 17; TEMP 97.6; O2SAT 98
[2024-01-01 20:00] VITALS: BP 120/76; PULSE 88; RESP 16; TEMP 97.6
[2024-01-02 08:18] VITALS: BP 126/86; PULSE 83; RESP 19; TEMP 98; O2SAT 100
[2024-01-02] MEDS: QUEtiapine FUMARATE 100 MG TABLET PO SCH (20:09)
[2024-01-02 20:36] VITALS: BP 109/85; PULSE 83; RESP 18; TEMP 97.6; O2SAT 100
[2024-01-03 08:59] VITALS: BP 113/78; PULSE 72; RESP 18; TEMP 97.3; O2SAT 99
[2024-01-03] MEDS: QUEtiapine FUMARATE 100 MG TABLET PO SCH (21:09)
[2024-01-03 21:14] VITALS: BP 134/78; PULSE 95; RESP 18; TEMP 97.8
[2024-01-04 08:11] VITALS: BP 125/78; PULSE 82; RESP 18; TEMP 97.8; O2SAT 96
[2024-01-04 20:00] VITALS: BP 136/72; PULSE 93; RESP 17; TEMP 98.3; O2SAT 99
[2024-01-05 08:03] VITALS: BP 129/67; PULSE 92; RESP 17; TEMP 97.4; O2SAT 98
[2024-01-05 21:35] VITALS: BP 145/90; PULSE 85; RESP 19; TEMP 97.5; O2SAT 100
[2024-01-06 08:09] VITALS: RESP 18
[2024-01-06] MEDS: MAGNESIUM SULFATE 454 GM BAG TP SCH (16:25)
[2024-01-06 20:27] VITALS: BP 148/90; PULSE 93; RESP 18; TEMP 96.8; O2SAT 100
[2024-01-07 08:06] VITALS: BP 125/85; PULSE 87; RESP 18; TEMP 97.6; O2SAT 96
[2024-01-07] MEDS ORDERED: DiphenhydrAMINE HCL 50 MG/ML VIAL ONE (17:15)
[2024-01-07] MEDS: ChlorproMAZINE HCL 50 MG/2 ML AMP IM ONE (17:15)
[2024-01-07] MEDS ORDERED: ChlorproMAZINE HCL 50 MG/2 ML AMP ONE (17:15)
[2024-01-07] MEDS: DiphenhydrAMINE HCL 50 MG/ML VIAL IM ONE (17:15)
[2024-01-07] MEDS: LORazepam 2 MG/ML VIAL IM ONE (17:15)
[2024-01-07] MEDS ORDERED: LORazepam 2 MG/ML VIAL ONE (17:16)
[2024-01-07 20:24] VITALS: BP 105/76; PULSE 66; RESP 20; TEMP 97.5; O2SAT 97
[2024-01-08 08:18] VITALS: BP 133/79; PULSE 89; RESP 18; TEMP 97.3; O2SAT 99
[2024-01-08 21:02] VITALS: BP 124/80; PULSE 90; RESP 18; TEMP 97.4; O2SAT 98
[2024-01-09 08:25] VITALS: RESP 19
[2024-01-09 22:08] VITALS: BP 116/74; PULSE 81; RESP 18; TEMP 97.8
[2024-01-10 08:12] VITALS: RESP 18
[2024-01-10] MEDS: MAGNESIUM HYDROXIDE SUSPENSION 30 ML UDCUP PO PRN (17:00)
[2024-01-10 20:18] VITALS: BP 126/92; PULSE 81; RESP 16; TEMP 97.7
[2024-01-11 08:30] VITALS: RESP 18
[2024-01-11 20:51] VITALS: BP 117/69; PULSE 83; RESP 18; TEMP 97.3
[2024-01-12 19:00] VITALS: RESP 18
[2024-01-12 21:50] VITALS: BP 129/82; PULSE 80; RESP 18; TEMP 97.8
[2024-01-13 17:12] VITALS: BP 130/77; PULSE 79; RESP 19; TEMP 97.7
[2024-01-13] MEDS ORDERED: LORazepam 2 MG/ML VIAL ONE (17:36)
[2024-01-13] MEDS ORDERED: DiphenhydrAMINE HCL 50 MG/ML VIAL ONE (17:37)
[2024-01-13] MEDS ORDERED: ChlorproMAZINE HCL 50 MG/2 ML AMP ONE (17:38)
[2024-01-13] MEDS: DiphenhydrAMINE HCL 50 MG/ML VIAL IM ONE (18:27)
[2024-01-13] MEDS: LORazepam 2 MG/ML VIAL IM ONE (18:27)
[2024-01-13] MEDS: ChlorproMAZINE HCL 50 MG/2 ML AMP IM ONE (18:28)
[2024-01-14 03:38] VITALS: RESP 18; TEMP 97.8
[2024-01-14 08:23] VITALS: RESP 18
[2024-01-14 20:00] VITALS: BP 128/74; PULSE 100; RESP 16; TEMP 97.3; O2SAT 97
[2024-01-15 08:23] VITALS: BP 131/69; PULSE 87; RESP 17; TEMP 98; O2SAT 100
[2024-01-15] MEDS ORDERED: QUET100T34 PO (09:13)
== END 2024-01-15 11:25 | disposition home or self-care (01) | DRG 750 ==
LOC: B2S 14:44 → B3A 01-07 17:29
PROVIDERS: ADMIT Psychiatry & Neurology Psychiatry; ATTEND Psychiatry & Neurology Psychiatry
PROC: GZ56ZZZ Individual Psychotherapy, Supportive (ICD-10-PCS; principal; 2024-01-01)
PROC: GZHZZZZ Group Psychotherapy (ICD-10-PCS; 2024-01-01)
DX: F25.1 Schizoaffective disorder, depressive type (principal); R45.851 Suicidal ideations; E55.9 Vitamin D deficiency, unspecified; G47.00 Insomnia, unspecified; F41.9 Anxiety disorder, unspecified; Z79.899 Other long term (current) drug therapy; Z88.6 Allergy status to analgesic agent
CPT/HCPCS: J1200; J2060; J3230

== ENCOUNTER 2024-06-12 11:15 | Inpatient (IN) | payer MEDICAID ==
[~2024-06-12] VITALS: Ht 175.3 cm; Wt 81.0 kg
[~2024-06-12 11:15] MED LIST changes: -DIVA-112 PO; -LITH300C3 PO; +QUET100T34 PO; -QUET300T2 PO
[2024-06-12] MEDS ORDERED: QUET200T PO (11:34)
[2024-06-12] MEDS ORDERED: DIVA-112 PO (11:36)
[2024-06-12] MEDS ORDERED: QUET300T19 PO (11:36)
[2024-06-12 12:18] LABS: COVID AG,FIA SOURCE NASAL SWAB
[2024-06-12 12:39] LABS: SARS-COV2 (COVID) ANTIGEN,FIA Negative (Negative)
[2024-06-12 17:15] LABS: APPEARANCE,URINE CLEAR (CLEAR); BILIRUBIN,URINE NEGATIVE (NEGATIVE); COLOR,URINE COLORLESS (YELLOW); GLUCOSE, URINE (UA) NEGATIVE (NEGATIVE); KETONES,URINE NEGATIVE (NEGATIVE); LEUKOCYTE ESTERASE ,URINE NEGATIVE (NEGATIVE); NITRATE,URINE NEGATIVE (NEGATIVE); OCCULT BLOOD,URINE NEGATIVE (NEGATIVE); PROTEIN,URINE NEGATIVE (NEGATIVE); SPECIFIC GRAVITIY, URINE 1.015 (1.003-1.030); UROBILINOGEN,URINE <=1.0 mg/dL (<=1.0)
[2024-06-12 17:23] LABS: ALCOHOL, URINE DRUG SCREEN NEGATIVE (NEGATIVE); AMPHET/METH SCREEN,URINE NEGATIVE (NEGATIVE); BARBITURATE SCREEN, URINE NEGATIVE (NEGATIVE); BENZODIAZEPINES SCREEN,URINE NEGATIVE (NEGATIVE); CANNABINOID SCREEN,URINE POSITIVE (NEGATIVE); COCAINE SCREEN,URINE NEGATIVE (NEGATIVE); METHADONE SCREEN, URINE NEGATIVE (NEGATIVE); OPIATE SCREEN,URINE NEGATIVE (NEGATIVE); PHENCYCLIDINE SCREEN,URINE NEGATIVE (NEGATIVE)
[2024-06-12] MEDS ORDERED: MAG HYDROX/ALUMINUM HYD/SIMETH ES 30 ML SUSPENSION UDCUP PO PRN (18:00)
[2024-06-12] MEDS ORDERED: HALOPERIDOL 5 MG TABLET PO PRN (18:00)
[2024-06-12] MEDS ORDERED: LOPERAMIDE HCL 2 MG CAPSULE PO PRN (18:00)
[2024-06-12] MEDS ORDERED: ACETAMINOPHEN 325 MG TABLET PO PRN (18:00)
[2024-06-12] MEDS ORDERED: MAGNESIUM HYDROXIDE SUSPENSION 30 ML UDCUP PO PRN (18:00)
[2024-06-12] MEDS: DIVALPROEX SODIUM 500 MG DR TABLET PO SCH (21:08)
[2024-06-12] MEDS: QUEtiapine FUMARATE 200 MG TABLET PO SCH (21:08)
[2024-06-12] MEDS: ZOLPIDEM TARTRATE 10 MG TABLET PO PRN (21:09)
[2024-06-12 23:53] LABS: BASOPHILS % (AUTO) 1.1 % (0.0-2.0); EOSINOPHILS % (AUTO) 2.7 % (1.0-6.0); HEMATOCRIT 38.3 % (41-53); HEMOGLOBIN 12.5 g/dL (13.5-17.5); LYMPHOCYTES # (AUTO) 2.7 K/uL (1.0-4.8); MEAN CORPUSCULAR HEMOGLOBIN 27.6 pg (26.0-34.0); MEAN CORPUSCULAR HGB CONC 32.6 G/dL (31.0-37.0); MEAN CORPUSCULAR VOLUME 85 fL (80-100); MONOCYTES # (AUTO) 0.6 K/uL (0.1-1.0); NEUTROPHILS # (AUTO) 3.4 K/uL (1.8-7.7); NEUTROPHILS % (AUTO) 49.2 % (40.0-70.0); PLATELET COUNT (AUTO) 214 K/uL (150-450); RED BLOOD CELL COUNT(AUTO) 4.53 MIL/uL (4.50-5.90); RED CELL DISTRIBUTION WIDTH 15.6 % (11.5-14.5); WHITE BLOOD COUNT (AUTO) 6.9 K/uL (4.5-11.0)
[2024-06-13 00:03] LABS: ANION GAP 5 mmol/L (8-16); CALCIUM, TOTAL 8.8 mg/dL (8.8-10.5); CARBON DIOXIDE 29 mmol/L (22-29); CHLORIDE 109 mmol/L (98-107); CREATININE 0.88 mg/dL (0.60-1.30); GLOMERULAR FILTR. RATE CALC > 60 mL/min (>60); GLUCOSE,RANDOM 118 mg/dL (70-110); SODIUM SERUM 143 mmol/L (136-145); UREA NITROGEN, BLOOD 13 mg/dL (7-18)
[2024-06-13 00:10] LABS: ALCOHOL, BLOOD (SERUM) < 3 mg/dL (0-10)
[2024-06-13] MEDS: BENZOCAINE/MENTHOL [CEPACOL] LOZENGE PO ONE (07:42)
[2024-06-13 14:46] VITALS: BP 106/69; PULSE 82; RESP 18; TEMP 97.8; O2SAT 98
[2024-06-13 20:35] VITALS: BP 108/72; PULSE 87; RESP 18; TEMP 97.1; O2SAT 98
[2024-06-14 10:06] VITALS: BP 148/83; PULSE 74; RESP 18; TEMP 97.2; O2SAT 99
[2024-06-14] MEDS ORDERED: PETROLATUM,WHITE 28 GM JELLY TP PRN (15:00)
[2024-06-14] MEDS ORDERED: ONDANSETRON 4 MG TABLET PO PRN (15:00)
[2024-06-14] MEDS ORDERED: ALBUTEROL SULFATE HFA 90 MCG/PUFF 8 GM INHALER IH PRN (15:00)
[2024-06-14] MEDS ORDERED: ACETAMINOPHEN 325 MG TABLET PO PRN (15:00)
[2024-06-14] MEDS ORDERED: CloNIDine HCL 0.1 MG TABLET PO PRN (15:00)
[2024-06-14] MEDS ORDERED: MAG HYDROX/ALUMINUM HYD/SIMETH ES 30 ML SUSPENSION UDCUP PO PRN (15:00)
[2024-06-14] MEDS ORDERED: NICOTINE 14 MG/24 HOUR PATCH TD PRN (15:00)
[2024-06-14] MEDS ORDERED: LOPERAMIDE HCL 2 MG CAPSULE PO PRN (15:00)
[2024-06-14 20:10] VITALS: RESP 18
[2024-06-15 09:14] VITALS: BP 128/84; PULSE 85; RESP 16; TEMP 98; O2SAT 98
[2024-06-15] MEDS: GuaiFENesin/D-METHORPHAN [SUGAR-FREE] 200-20MG/10 ML SYRUP UDCUP PO PRN (21:01)
[2024-06-15 22:04] VITALS: BP 136/76; PULSE 100; RESP 18; TEMP 98.5; O2SAT 98
[2024-06-16 10:25] VITALS: RESP 17
[2024-06-16 22:52] VITALS: RESP 18
[2024-06-17 08:27] VITALS: BP 148/83; PULSE 88; RESP 17; TEMP 98.6
[2024-06-17] MEDS: MAGNESIUM SULFATE 454 GM BAG TP SCH (08:52)
[2024-06-17 20:22] VITALS: RESP 18
[2024-06-18 11:10] VITALS: RESP 18
[2024-06-18] MEDS: DOCUSATE SODIUM 100 MG CAPSULE PO PRN (13:53)
[2024-06-18 23:08] VITALS: RESP 18; O2SAT 99
[2024-06-19 09:10] VITALS: BP 120/72; PULSE 89; RESP 18; TEMP 97.8; O2SAT 99
[2024-06-19 20:55] VITALS: BP 138/82; PULSE 93; RESP 18; TEMP 98.1; O2SAT 99
[2024-06-20 09:16] VITALS: BP 131/81; PULSE 80; RESP 18; TEMP 98; O2SAT 97
[2024-06-20 21:18] VITALS: BP 115/68; PULSE 82; RESP 18; TEMP 98.2; O2SAT 100
[2024-06-21 13:28] VITALS: BP 116/79; PULSE 89; RESP 18; TEMP 97; O2SAT 97
[2024-06-21 20:37] VITALS: BP 149/108; PULSE 98; RESP 18; TEMP 96.7; O2SAT 100
[2024-06-22] MEDS: LORazepam 2 MG TABLET PO PRN (14:31)
[2024-06-22 20:44] VITALS: RESP 18
[2024-06-23 10:15] VITALS: BP 117/80; PULSE 82; RESP 18; TEMP 97.5; O2SAT 100
[2024-06-23 21:30] VITALS: BP 137/74; PULSE 92; RESP 18; TEMP 98.2; O2SAT 99
[2024-06-23 21:33] VITALS: BP 137/74; PULSE 98; RESP 18; TEMP 98.2; O2SAT 99
[2024-06-24] MEDS: MAGNESIUM HYDROXIDE SUSPENSION 30 ML UDCUP PO PRN (15:38)
[2024-06-24 21:16] VITALS: BP 145/87; PULSE 100; RESP 18; TEMP 98.2; O2SAT 98
[2024-06-25 11:14] VITALS: BP 144/83; PULSE 87; RESP 17; TEMP 98.1; O2SAT 99
[2024-06-25 20:20] VITALS: BP 137/71; PULSE 87; RESP 18; TEMP 98; O2SAT 97
[2024-06-25 23:45] VITALS: BP 128/87; RESP 18; O2SAT 96
[2024-06-26 08:27] VITALS: BP 117/79; PULSE 84; RESP 18; TEMP 97.8; O2SAT 99
[2024-06-26 21:07] VITALS: BP 127/75; PULSE 88; RESP 18; TEMP 97.5; O2SAT 98
[2024-06-27 09:06] VITALS: BP 136/90; PULSE 83; RESP 17; TEMP 97.3; O2SAT 100
[2024-06-27] MEDS ORDERED: DIVA-112 PO (13:06)
[2024-06-27] MEDS ORDERED: QUET200T30 PO (13:06)
== END 2024-06-27 16:19 | disposition home or self-care (01) | DRG 750 ==
LOC: EMS 11:15 → UNDOADMIN 06-13 12:30 → EDH 06-13 12:30 → 3EC 06-13 12:30 → 3EI 06-20 09:52 → 3EC 06-22 15:37
PROVIDERS: ADMIT Psychiatry & Neurology Psychiatry; ATTEND Psychiatry & Neurology Psychiatry
PROC: GZHZZZZ Group Psychotherapy (ICD-10-PCS; principal; 2024-06-14)
PROC: GZ52ZZZ Individual Psychotherapy, Cognitive (ICD-10-PCS; 2024-06-14)
DX: F25.0 Schizoaffective disorder, bipolar type (principal); R45.851 Suicidal ideations; D64.9 Anemia, unspecified; F10.10 Alcohol abuse, uncomplicated; F41.9 Anxiety disorder, unspecified; F19.10 Other psychoactive substance abuse, uncomplicated; Z20.822 Contact with and (suspected) exposure to COVID-19; F12.10 Cannabis abuse, uncomplicated; F14.90 Cocaine use, unspecified, uncomplicated; F17.200 Nicotine dependence, unspecified, uncomplicated; I10 Essential (primary) hypertension; Z79.899 Other long term (current) drug therapy; Z88.6 Allergy status to analgesic agent
CPT/HCPCS: 80048; 80307; 81003; 85025; 87081; 99285; G0480

== ENCOUNTER 2024-11-06 21:21 | Inpatient (IN) | payer MEDICAID ==
[~2024-11-06] VITALS: Ht 175.3 cm; Wt 77.6 kg
[~2024-11-06 21:21] MED LIST changes: +DIVA-112 PO; -QUET100T34 PO; +QUET200T30 PO
[2024-11-07 15:15] LABS: GLUCOMETER DEV NAME(LOC) POC.BV; POC SARS-COV2 AG, FIA NEGATIVE (NEGATIVE)
[2024-11-07 17:30] VITALS: BP 117/82; PULSE 82; RESP 18; TEMP 97.7; O2SAT 98
[2024-11-07 20:05] VITALS: RESP 17
[2024-11-07] MEDS ORDERED: LOPERAMIDE HCL 2 MG CAPSULE PO PRN (20:45)
[2024-11-07] MEDS ORDERED: BACITRACIN 28 GM OINTMENT TP PRN (20:45)
[2024-11-07] MEDS ORDERED: OMEPRAZOLE 20 MG CAPSULE PO PRN (20:45)
[2024-11-07] MEDS ORDERED: PETROLATUM,WHITE 28 GM JELLY TP PRN (20:45)
[2024-11-07] MEDS ORDERED: ONDANSETRON 4 MG TABLET PO PRN (20:45)
[2024-11-07] MEDS ORDERED: DOCUSATE SODIUM 100 MG CAPSULE PO PRN (20:45)
[2024-11-07] MEDS ORDERED: IBUPROFEN 600 MG TABLET PO PRN (20:45)
[2024-11-07] MEDS ORDERED: ALBUTEROL SULFATE HFA 90 MCG/PUFF 8 GM INHALER IH PRN (20:45)
[2024-11-07] MEDS ORDERED: BENZOCAINE/MENTHOL [CEPACOL] LOZENGE PO PRN (20:45)
[2024-11-07 21:14] VITALS: BP 125/77; PULSE 83; RESP 18; TEMP 97.6
[2024-11-07] MEDS: ACETAMINOPHEN 325 MG TABLET PO PRN (21:16)
[2024-11-08 07:38] LABS: PLATELET COUNT (AUTO) 226 K/uL (150-450); RED BLOOD CELL COUNT(AUTO) 4.96 MIL/uL (4.50-5.90); RED CELL DISTRIBUTION WIDTH 15.5 % (11.5-14.5); WHITE BLOOD COUNT (AUTO) 7.6 K/uL (4.5-11.0)
[2024-11-08 08:02] VITALS: BP 103/60; PULSE 60; RESP 18; TEMP 97.4; O2SAT 98
[2024-11-08 08:08] LABS: ASPARTATE AMINOTRANSFERASE 90 U/L (15-37); CALCIUM, TOTAL 9.2 mg/dL (8.8-10.5); CHOL/HDL RATIO 2.2 (4.2-7.3); CREATININE 0.90 mg/dL (0.60-1.30); GLOMERULAR FILTR. RATE CALC > 60 mL/min (>60); GLUCOSE,RANDOM 101 mg/dL (70-110); LDL CHOL (CALC.) 57 mg/dL (0-130); SODIUM SERUM 137 mmol/L (136-145); TOTAL PROTEIN, SERUM 7.5 g/dL (6.4-8.2); UREA NITROGEN, BLOOD 20 mg/dL (7-18)
[2024-11-08] MEDS: TERBINAFINE HCL 1% 30 GM CREAM TP SCH (08:41)
[2024-11-08 20:02] VITALS: BP 110/70; PULSE 81; RESP 18; TEMP 97.6; O2SAT 99
[2024-11-08] MEDS: ZOLPIDEM TARTRATE 10 MG TABLET PO PRN (21:13)
[2024-11-08] MEDS: DIVALPROEX SODIUM 500 MG DR TABLET PO SCH (21:14)
[2024-11-08] MEDS: MAGNESIUM HYDROXIDE SUSPENSION 30 ML UDCUP PO PRN (21:17)
[2024-11-09 08:00] VITALS: BP 100/60; PULSE 74; RESP 17; TEMP 97.5; O2SAT 97
[2024-11-09 20:01] VITALS: RESP 17
[2024-11-10 08:32] VITALS: BP 119/86; PULSE 89; RESP 18; TEMP 97.7; O2SAT 90
[2024-11-10 20:06] VITALS: BP 104/62; PULSE 89; RESP 18; TEMP 98; O2SAT 99
[2024-11-11 08:17] VITALS: BP 117/79; PULSE 90; RESP 18; TEMP 97.7; O2SAT 99
== END 2024-11-11 11:10 | disposition home or self-care (01) | DRG 750 ==
LOC: B3A 11-07 13:35
PROVIDERS: ADMIT Psychiatry & Neurology Psychiatry; ATTEND Psychiatry & Neurology Psychiatry
DX: F25.9 Schizoaffective disorder, unspecified (principal); R45.851 Suicidal ideations; Z91.148 Patient's other noncompliance with medication regimen for other reason; Z20.822 Contact with and (suspected) exposure to COVID-19; E66.9 Obesity, unspecified; F17.200 Nicotine dependence, unspecified, uncomplicated; F41.9 Anxiety disorder, unspecified; G47.00 Insomnia, unspecified; S90.822A Blister (nonthermal), left foot, initial encounter; X58.XXXA Exposure to other specified factors, initial encounter; Z79.899 Other long term (current) drug therapy; Z71.6 Tobacco abuse counseling; Y93.89 Activity, other specified; Y92.89 Other specified places as the place of occurrence of the external cause; Z68.25 Body mass index [BMI] 25.0-25.9, adult
CPT/HCPCS: 80053; 80061; 83036; 84439; 84443; 85025